=== PATIENT | male | born 1955 | race Caucasian/White ===

== ENCOUNTER → 2019-07-01 | Outpatient (CLI) | payer OTHER ==
[2019-07-01 10:03] LABS: ALBUMIN 4.5 g/dL (3.5-5.0); ALKALINE PHOSPHATASE 65 U/L (38-126); ANION GAP 10 (5-19); ASPARTATE AMINO TRANSFERASE 33 U/L (17-59); BILIRUBIN,TOTAL 0.3 mg/dL (0.2-1.3); BLOOD UREA NITROGEN 41 mg/dL (7-20); CALCIUM 10.3 mg/dL (8.4-10.2); CARBON DIOXIDE 28 mmol/L (22-30); CHLORIDE 100 mmol/L (98-107); GLUCOSE 103 mg/dL (75-110); POTASSIUM 5.3 mmol/L (3.6-5.0); URIC ACID 5.1 mg/dL (3.5-8.5)
== END ==
LOC: LAB 09:14
PROVIDERS: ATTEND Internal Medicine Pulmonary Disease
DX: M10.9 Gout, unspecified (principal)
CPT/HCPCS: 36415; 80053; 84550